=== PATIENT | male | born 1945 | race African-American/Black ===

== ENCOUNTER → 2017-01-25 | Outpatient (CLI) | payer MEDICARE, OTHER ==
[~2017-01-25] MED LIST: AMIO200T PO; AMIO200T42 PO; APIX5TAB PO; ASPI-496 PO; ASPI325T4 PO; CARV6.2512 PO; CARV6.252 PO; CEPH-368 PO; FERR325T20 PO; FERR325T63 PO; FURO-93 PO; LOSA25TA5 PO; MULT1TAB13 PO; POLY17PO5 PO; POLY510P31 PO; RAMI2.5C PO; SIMV20TA PO; SIMV20TA3 PO; SPIR25TA PO; TIOT18CA INH
== END | disposition home or self-care (01) ==
LOC: CFH 15:55
PROVIDERS: ATTEND Genetic Counselor, MS
DX: E78.5 Hyperlipidemia, unspecified (principal)
CPT/HCPCS: 71020

== ENCOUNTER → 2017-11-29 | Outpatient (CLI) | payer MEDICARE, OTHER ==
[~2017-11-29] MED LIST changes: +ASPI325T17 PO; -ASPI325T4 PO; +FERR325T18 PO; -FERR325T20 PO
== END | disposition home or self-care (01) ==
LOC: CFH 14:47
PROVIDERS: ATTEND Internal Medicine Cardiovascular Disease
DX: I10 Essential (primary) hypertension (principal)
CPT/HCPCS: 93306

== ENCOUNTER → 2018-01-24 | Outpatient (CLI) | payer MEDICARE, OTHER | END | disposition home or self-care (01) | LOC: LAB 17:20 | PROVIDERS: ATTEND Family Medicine | DX: M79.673 Pain in unspecified foot (principal) | CPT/HCPCS: 36415; 84550 ==

== ENCOUNTER → 2019-12-14 | Outpatient (CLI) | payer MEDICARE, OTHER ==
[~2019-12-14] MED LIST changes: +LOSA25TA25 PO; -LOSA25TA5 PO; -RAMI2.5C PO; +RAMI2.5C2 PO; +SIMV20TA19 PO; -SIMV20TA3 PO
== END | disposition home or self-care (01) ==
LOC: CVU 10:45
PROVIDERS: ATTEND Nurse Practitioner Family
DX: I08.0 Rheumatic disorders of both mitral and aortic valves (principal); I42.9 Cardiomyopathy, unspecified; I25.2 Old myocardial infarction
CPT/HCPCS: 93306

== ENCOUNTER 2020-01-25 06:56 | Inpatient (IN) | payer MEDICARE, OTHER ==
[~2020-01-25] VITALS: Ht 185.4 cm; Wt 118.0 kg
[2020-01-25] MEDS ORDERED: SODIUM CHLORIDE 0.9% 1,000 ML IV SCH (07:09)
[2020-01-25 07:25] VITALS: BP 130/63
[2020-01-25 08:03] LABS: BASOPHILS # (AUTO) 0.08 x10^3/uL (0-0.1); BASOPHILS % (AUTO) 1 % (0-1); EOSINOPHILS # (AUTO) 0.16 x10^3/uL (0-0.4); EOSINOPHILS % (AUTO) 2 % (1-7); LYMPHOCYTES # (AUTO) 2.48 x10^3/uL (1-3.4); LYMPHOCYTES % (AUTO) 32 % (22-44); MD NO; MEAN CORPUSCULAR HEMOGLOBIN 29.6 pg (27.5-34.5); MEAN CORPUSCULAR HGB CONC 32.8 g/dL (33.2-36.2); MEAN CORPUSCULAR VOLUME 90.4 fL (81-97); MEAN PLATELET VOLUME 7.4 fL (7.4-10.4); MONOCYTES # (AUTO) 0.53 x10^3/uL (0.2-0.8); MONOCYTES % (AUTO) 7 % (2-9); NEUTROPHILS # (AUTO) 4.58 x10^3/uL (1.8-6.8); NEUTROPHILS % (AUTO) 59 % (42-75); PLATELET COUNT 277 x10^3/uL (130-400); RED BLOOD COUNT 4.44 x10^6/uL (4.38-5.82); RED CELL DISTRIBUTION WIDTH 18.9 % (9.4-14.8)
[2020-01-25] MEDS ORDERED: CEFAZOLIN PMX 1GM/50ML 50 ML ONE (08:05)
[2020-01-25] MEDS ORDERED: CEFAZOLIN 1,000 MG ONE ×2 (08:05→14:24)
[2020-01-25] MEDS ORDERED: LIDOCAINE 1%, 20ML ONE (08:05)
[2020-01-25 08:07] LABS: INTERNATIONAL NORMALIZED RATIO 1.02 (0.93-1.1); PROTHROMBIN TIME 10.8 Seconds (9.6-11.5)
[2020-01-25 08:10] LABS: ALANINE AMINOTRANSFERASE 16 U/L (12-78); ALBUMIN 3.4 g/dL (3.4-5.0); ANION GAP 7 mmol/L (5-15); CALCIUM 8.6 mg/dL (8.5-10.1); CHLORIDE 110 mmol/L (98-107); CREATININE 1.06 mg/dL (0.7-1.3)
[2020-01-25 08:15] LABS: ALKALINE PHOSPHATASE 98 U/L (45-117); BILIRUBIN,TOTAL 0.4 mg/dL (0.2-1.0); TOTAL PROTEIN 8.3 g/dL (6.4-8.2)
[2020-01-25] MEDS ORDERED: HOLD MEDICATION MC PRN (10:00)
[2020-01-25] MEDS ORDERED: ACETAMINOPHEN 325 MG TABLET PO PRN (10:00)
[2020-01-25] MEDS ORDERED: ONDANSETRON 2MG/ML, 2ML IV PRN (10:30)
[2020-01-25] MEDS ORDERED: OXYcodone 5 MG/5 ML ORAL.SOL UDC PO PRN (10:30)
[2020-01-25] MEDS ORDERED: PROMETHAZINE 25 MG/ML, 1ML IV PRN (10:30)
[2020-01-25] MEDS ORDERED: MIDAZOLAM 1 MG/ML, 2ML IV PRN (10:30)
[2020-01-25] MEDS ORDERED: ONDANSETRON ODT 8 MG PO PRN (10:30)
[2020-01-25] MEDS ORDERED: FENTANYL PF 100 MCG/2ML IV PRN (10:30)
[2020-01-25] MEDS ORDERED: EPHEDRINE 50 MG/ML, 1ML IM PRN (10:30)
[2020-01-25] MEDS ORDERED: MORPHINE SULFATE 4 MG/ML, 1ML IVPush PRN (10:30)
[2020-01-25] MEDS ORDERED: EPHEDRINE 50 MG/ML, 1ML IVPush PRN (10:30)
[2020-01-25] MEDS: AMIODARONE 200 MG TABLET PO SCH ×3 (12:03→21:16)
[2020-01-25 14:00] VITALS: BP 126/88
[2020-01-25] MEDS ORDERED: ONDANSETRON 2MG/ML, 2ML ONE (14:24)
[2020-01-25] MEDS ORDERED: FENTANYL PF 250 MCG/5ML ONE (14:24)
[2020-01-25] MEDS ORDERED: PROPOFOL 10 MG/ML, 50ML ONE (14:24)
[2020-01-25] MEDS ORDERED: PROPOFOL 10 MG/ML, 20ML ONE (14:24)
[2020-01-25] MEDS: CEFAZOLIN PMX 1GM/50ML 50 ML IVPB SCH (16:34)
[2020-01-25 19:22] VITALS: BP 127/76
[2020-01-25] MEDS: SIMVASTATIN 20 MG TABLET PO SCH (21:16)
[2020-01-25] MEDS: SODIUM CHLORIDE FLUSH 10ML SYR IVF SCH (21:17)
[2020-01-25] MEDS: CARVEDILOL 6.25 MG TABLET PO SCH (21:17)
[2020-01-25] MEDS: FUROSEMIDE 20 MG TABLET PO SCH (21:17)
[2020-01-25] MEDS ORDERED: TEMAZEPAM 15 MG CAPSULE PO ONE (22:30)
[2020-01-26 01:21] VITALS: BP 118/73
[2020-01-26] MEDS: CEFAZOLIN PMX 1GM/50ML 50 ML IVPB SCH ×2 (01:34→21:04)
[2020-01-26] MEDS ORDERED: TEMAZEPAM 15 MG CAPSULE PO ONE ×2 (02:30→21:00)
[2020-01-26 08:20] VITALS: BP 122/72
[2020-01-26] MEDS: LOSARTAN 25MG TABLET PO SCH (09:26)
[2020-01-26] MEDS: CARVEDILOL 6.25 MG TABLET PO SCH ×2 (09:26→21:04)
[2020-01-26] MEDS: AMIODARONE 200 MG TABLET PO SCH ×3 (09:26→21:03)
[2020-01-26] MEDS: SPIRONOLACTONE 25 MG TABLET PO SCH (09:26)
[2020-01-26] MEDS: FUROSEMIDE 20 MG TABLET PO SCH ×2 (09:28→21:03)
[2020-01-26] MEDS: SODIUM CHLORIDE FLUSH 10ML SYR IVF SCH ×3 (09:28→21:03)
[2020-01-26] MEDS ORDERED: ONDANSETRON 2MG/ML, 2ML IVPush ONE (09:30)
[2020-01-26] MEDS ORDERED: SODIUM CHLORIDE 0.9% 1,000 ML IV SCH (12:04)
[2020-01-26] MEDS ORDERED: CEFAZOLIN PMX 1GM/50ML 50 ML IVPB ONE (12:30)
[2020-01-26 14:00] VITALS: BP 121/66
[2020-01-26] MEDS ORDERED: HOLD MEDICATION MC PRN (14:00)
[2020-01-26 19:39] VITALS: BP 106/64
[2020-01-26] MEDS: SIMVASTATIN 20 MG TABLET PO SCH (21:04)
[2020-01-27 01:10] VITALS: BP 117/75
[2020-01-27] MEDS: CEFAZOLIN PMX 1GM/50ML 50 ML IVPB SCH (05:15)
[2020-01-27 06:25] VITALS: BP 123/67
[2020-01-27] MEDS ORDERED: ACET325T26 PO (08:46)
[2020-01-27] MEDS ORDERED: AMIO200T42 PO (08:46)
[2020-01-27] MEDS: FUROSEMIDE 20 MG TABLET PO SCH (08:54)
[2020-01-27] MEDS: LOSARTAN 25MG TABLET PO SCH (08:54)
[2020-01-27] MEDS: CARVEDILOL 6.25 MG TABLET PO SCH (08:54)
[2020-01-27] MEDS: AMIODARONE 200 MG TABLET PO SCH (08:54)
[2020-01-27] MEDS: SPIRONOLACTONE 25 MG TABLET PO SCH (08:54)
[2020-01-27] MEDS: SODIUM CHLORIDE FLUSH 10ML SYR IVF SCH ×2 (08:55)
== END 2020-01-27 14:00 | disposition home or self-care (01) | DRG 242 ==
LOC: OUT 06:56 → EDSTATUS 08:00 → ORIP 09:37 → 5SO 11:41
PROVIDERS: ADMIT Internal Medicine Cardiovascular Disease; ATTEND Internal Medicine Cardiovascular Disease
PROC: 0JH607Z Insertion of Cardiac Resynchronization Pacemaker Pulse Generator into Chest Subcutaneous Tissue and Fascia, Open Approach (ICD-10-PCS; 2020-01-25)
PROC: 02HK3JZ Insertion of Pacemaker Lead into Right Ventricle, Percutaneous Approach (ICD-10-PCS; 2020-01-25)
PROC: 02H63JZ Insertion of Pacemaker Lead into Right Atrium, Percutaneous Approach (ICD-10-PCS; 2020-01-25)
PROC: 02WA3MZ Revision of Cardiac Lead in Heart, Percutaneous Approach (ICD-10-PCS; principal; 2020-01-25 08:00)
DX: I44.7 Left bundle-branch block, unspecified (principal); I50.43 Acute on chronic combined systolic (congestive) and diastolic (congestive) heart failure; I42.8 Other cardiomyopathies; T82.120A Displacement of cardiac electrode, initial encounter; I11.0 Hypertensive heart disease with heart failure; I48.0 Paroxysmal atrial fibrillation; Y83.8 Other surgical procedures as the cause of abnormal reaction of the patient, or of later complication, without mention of misadventure at the time of the procedure; Y92.89 Other specified places as the place of occurrence of the external cause; Z95.0 Presence of cardiac pacemaker; Z87.891 Personal history of nicotine dependence
CPT/HCPCS: 33208; 33215; 33225; 36415; 71045; 71046; 80053; 83880; 85025; 85610; 99156; 99157; C1769; C1779; C1887; C1892; C2621; G0378; J0690; J2250; J2405; J2704; J3010; C1900; Q9967

== ENCOUNTER 2020-01-28 08:42 | Inpatient (IN) | payer MEDICARE, OTHER ==
[~2020-01-28] VITALS: Ht 210.8 cm; Wt 109.9 kg
[~2020-01-28 08:42] MED LIST changes: +ACET325T26 PO
--- NOTE | 2020-01-28 08:48 | NUR ---
PATIENT ARRIVES FROM HOME WITH SAMUELSA FOR PAIN AND SWELLING TO HIS LEFT HAND. HE HAD A PACEMAKER PLACED HERE YESTERDAY, AND AN IV IN THAT HAND. THE BACK OF HIS HAND IS SWOLLEN. NO CHEST PAIN. DRESSING TO PACEMAKER IS [employer] TEGADERM WITH GAUZE
--- NOTE | 2020-01-28 09:05 | NUR ---
REPORT FROM OMKAR WILLAMS. PT CARE RESPONSIBLITIES ASSUMED.
[2020-01-28] MEDS ORDERED: CEFAZOLIN PMX 1GM/50ML 50 ML IV ONE (09:45)
[2020-01-28] MEDS ORDERED: CEFAZOLIN PMX 1GM/50ML 50 ML ONE (09:55)
[2020-01-28] MEDS ORDERED: ONDANSETRON 2MG/ML, 2ML ONE (09:55)
[2020-01-28] MEDS ORDERED: MORPHINE SULFATE 4 MG/ML, 1ML ONE ×2 (09:55→11:50)
[2020-01-28] MEDS: MORPHINE SULFATE 4 MG/ML, 1ML IVPush PRN ×2 (09:59→11:53)
[2020-01-28] MEDS ORDERED: ONDANSETRON 2MG/ML, 2ML IVPush ONE (10:00)
[2020-01-28] MEDS ORDERED: SODIUM CHLORIDE FLUSH 10ML SYR IVF ONE (10:00)
[2020-01-28] MEDS ORDERED: OMNIPAQUE 350 MG/ML, 100ML BOTTLE ONE (11:10)
--- NOTE | 2020-01-28 11:59 | NUR ---
REPORT CALLED. PT ASSISTED IN USE OF URINAL, AND MEDICATED PER MAR FOR PAIN. PT MADE AWARE OF IMPENDING TRANSPORT, DENIES ANY NEEDS OR CONCERNS AT THIS TIME. CALL LIGHT IN REACH.
[2020-01-28] MEDS ORDERED: hydrALAzine 20 MG/ML, 1ML IVPush PRN (13:00)
[2020-01-28] MEDS ORDERED: OXYcodone IR 5MG TABLET PO PRN (13:00)
[2020-01-28] MEDS ORDERED: BUTALB/APAP/CAFFEINE 50MG/325MG/40MG PO PRN ×2 (13:00)
[2020-01-28] MEDS ORDERED: ACETAMINOPHEN 325 MG TABLET PO PRN (13:00)
[2020-01-28] MEDS ORDERED: LACTATED RINGERS 1,000 ML IV ONE (13:00)
[2020-01-28] MEDS ORDERED: ONDANSETRON 2MG/ML, 2ML IVPush PRN (13:00)
[2020-01-28] MEDS ORDERED: KETOROLAC 30 MG/1 ML IV PRN (13:00)
[2020-01-28] MEDS ORDERED: TRAZODONE 50MG TABLET PO PRN (13:00)
[2020-01-28] MEDS ORDERED: IBUPROFEN 600 MG TABLET PO PRN (13:00)
[2020-01-28] MEDS ORDERED: LABETALOL 5MG/ML, 20ML IVPush PRN (13:00)
[2020-01-28] MEDS ORDERED: ONDANSETRON ODT 4 MG PO PRN (13:00)
[2020-01-28 13:41] VITALS: BP 141/81
[2020-01-28] MEDS: ENOXAPARIN 40 MG/0.4 ML SQ SCH (14:16)
[2020-01-28 19:53] VITALS: BP 122/67
[2020-01-28 20:03] VITALS: BP 122/67
[2020-01-28 20:45] VITALS: BP 119/72
[2020-01-28] MEDS: SIMVASTATIN 20 MG TABLET PO SCH (20:45)
[2020-01-28] MEDS: AMIODARONE 200 MG TABLET PO SCH (20:46)
[2020-01-28] MEDS: CARVEDILOL 6.25 MG TABLET PO SCH (20:46)
[2020-01-28] MEDS: FUROSEMIDE 20 MG TABLET PO SCH (20:47)
[2020-01-29] VITALS (7 sets, daily range): BP systolic 107–127; BP diastolic 72–84
[2020-01-29 05:45] LABS: BASOPHILS # (AUTO) 0.03 x10^3/uL (0-0.1); BASOPHILS % (AUTO) 0 % (0-1); EOSINOPHILS # (AUTO) 0.13 x10^3/uL (0-0.4); EOSINOPHILS % (AUTO) 1 % (1-7); LYMPHOCYTES # (AUTO) 2.09 x10^3/uL (1-3.4); LYMPHOCYTES % (AUTO) 22 % (22-44); MD NO; MEAN CORPUSCULAR HEMOGLOBIN 29.8 pg (27.5-34.5); MEAN CORPUSCULAR HGB CONC 32.8 g/dL (33.2-36.2); MEAN PLATELET VOLUME 7.8 fL (7.4-10.4); MONOCYTES # (AUTO) 0.72 x10^3/uL (0.2-0.8); MONOCYTES % (AUTO) 7 % (2-9); NEUTROPHILS # (AUTO) 6.76 x10^3/uL (1.8-6.8); NEUTROPHILS % (AUTO) 70 % (42-75); PLATELET COUNT 200 x10^3/uL (130-400); RED BLOOD COUNT 3.97 x10^6/uL (4.38-5.82); RED CELL DISTRIBUTION WIDTH 17.9 % (9.4-14.8)
[2020-01-29] MEDS: CARVEDILOL 6.25 MG TABLET PO SCH ×2 (08:10→21:38)
[2020-01-29] MEDS: AMIODARONE 200 MG TABLET PO SCH ×2 (08:10→21:37)
[2020-01-29] MEDS: SPIRONOLACTONE 25 MG TABLET PO SCH (08:10)
[2020-01-29] MEDS: LOSARTAN 25MG TABLET PO SCH (08:10)
[2020-01-29] MEDS: FUROSEMIDE 20 MG TABLET PO SCH ×2 (08:10→21:38)
[2020-01-29] MEDS: CEFAZOLIN PMX 1GM/50ML 50 ML IV SCH ×2 (09:51→17:22)
[2020-01-29] MEDS: ENOXAPARIN 40 MG/0.4 ML SQ SCH (13:43)
[2020-01-29 14:04] LABS: HCT (SEDRATE) 38.1 % (39.2-51.8)
[2020-01-29] MEDS: KETOROLAC 30 MG/1 ML IV SCH (17:15)
[2020-01-29] MEDS: SIMVASTATIN 20 MG TABLET PO SCH (21:37)
[2020-01-30] MEDS: CEFAZOLIN PMX 1GM/50ML 50 ML IV SCH ×2 (00:51→09:00)
[2020-01-30] MEDS: KETOROLAC 30 MG/1 ML IV SCH ×2 (00:51→07:55)
[2020-01-30 00:57] VITALS: BP 122/76
[2020-01-30 06:46] VITALS: BP 109/66
[2020-01-30] MEDS: CARVEDILOL 6.25 MG TABLET PO SCH (07:54)
[2020-01-30] MEDS: FUROSEMIDE 20 MG TABLET PO SCH (07:54)
[2020-01-30] MEDS: SPIRONOLACTONE 25 MG TABLET PO SCH (07:54)
[2020-01-30] MEDS: AMIODARONE 200 MG TABLET PO SCH (07:54)
[2020-01-30] MEDS: LOSARTAN 25MG TABLET PO SCH (07:54)
[2020-01-30] MEDS ORDERED: CEPH-368 PO (10:09)
[2020-01-30] MEDS ORDERED: IBUP-1222 PO (10:09)
[2020-01-30] MEDS: ENOXAPARIN 40 MG/0.4 ML SQ SCH (13:00)
[2020-01-30 14:35] VITALS: BP 128/75
== END 2020-01-30 17:03 | disposition home or self-care (01) | DRG 603 ==
LOC: ED 09:35 → OBSVTOIN 11:44 → EDIP 11:44 → INTOOBSV 11:44 → 3N 12:18
PROVIDERS: ADMIT Family Medicine; ATTEND Family Medicine
DX: L03.114 Cellulitis of left upper limb (principal); I42.8 Other cardiomyopathies; I13.0 Hypertensive heart and chronic kidney disease with heart failure and stage 1 through stage 4 chronic kidney disease, or unspecified chronic kidney disease; I48.20 Chronic atrial fibrillation, unspecified; I50.22 Chronic systolic (congestive) heart failure; E66.01 Morbid (severe) obesity due to excess calories; I44.7 Left bundle-branch block, unspecified; E78.5 Hyperlipidemia, unspecified; N18.9 Chronic kidney disease, unspecified; I25.10 Atherosclerotic heart disease of native coronary artery without angina pectoris; Z68.24 Body mass index [BMI] 24.0-24.9, adult; I25.2 Old myocardial infarction; Z72.0 Tobacco use; Z79.01 Long term (current) use of anticoagulants; Z95.0 Presence of cardiac pacemaker
CPT/HCPCS: 36415; 85025; 85651; 86140; 93005; 99285; G0378; J0690; J1650; J1885; J2405; Q9967; J2270; J7120

== ENCOUNTER → 2020-05-01 | Outpatient (CLI) | payer MEDICARE, OTHER ==
[~2020-05-01] MED LIST changes: +IBUP-1222 PO
== END | disposition home or self-care (01) ==
LOC: CFH 16:21
PROVIDERS: ATTEND Nurse Practitioner Family
DX: I08.8 Other rheumatic multiple valve diseases (principal); I42.9 Cardiomyopathy, unspecified; I25.10 Atherosclerotic heart disease of native coronary artery without angina pectoris; I25.2 Old myocardial infarction
CPT/HCPCS: 93306

== ENCOUNTER 2020-08-05 17:19 | Emergency (ER) | payer MEDICARE, OTHER ==
[~2020-08-05] VITALS: Ht 185.4 cm; Wt 106.0 kg
[2020-08-05] MEDS ORDERED: SODIUM CHLORIDE FLUSH 10ML SYR IVF ONE (18:00)
--- NOTE | 2020-08-05 18:06 | NUR ---
PT C/O COUGH AND SOB X2 WEEKS. SPEAKS IN FULL SENTENCES IN ED ROOM. NO WOB NOTED. PT PLEASANT WITH STAFF.
--- NOTE | 2020-08-05 18:10 | NUR ---
PT COVID SWABBED AT . DENIES PAIN AT THIS TIME. PLACED ON [employer] ENGINEERING TECHNICIANS, BP AND SPO2.
[2020-08-05 18:39] LABS: BASOPHILS % (AUTO) 1 % (0-1); EOSINOPHILS % (AUTO) 1 % (1-7); LYMPHOCYTES % (AUTO) 28 % (22-44); MEAN CORPUSCULAR HEMOGLOBIN 19.4 pg (27.5-34.5); MEAN PLATELET VOLUME 6.6 fL (7.4-10.4); MONOCYTES % (AUTO) 8 % (2-9); NEUTROPHILS % (AUTO) 62 % (42-75); PLATELET COUNT 303 x10^3/uL (130-400); RED BLOOD COUNT 4.23 x10^6/uL (4.38-5.82); RED CELL DISTRIBUTION WIDTH 20.3 % (9.4-14.8)
[2020-08-05 18:47] LABS: ALANINE AMINOTRANSFERASE 43 U/L (12-78); ALBUMIN 3.3 g/dL (3.4-5.0); ANION GAP 6 mmol/L (5-15); CALCIUM 9.3 mg/dL (8.5-10.1); CHLORIDE 108 mmol/L (98-107); CREATININE 1.76 mg/dL (0.7-1.3)
[2020-08-05 18:51] LABS: ALKALINE PHOSPHATASE 117 U/L (45-117); BILIRUBIN,TOTAL 0.5 mg/dL (0.2-1.0); TOTAL PROTEIN 8.5 g/dL (6.4-8.2); TROPONIN I < 0.015 ng/mL (0.000-0.045)
[2020-08-05 18:56] LABS: MEAN CORPUSCULAR HGB CONC 29.4 g/dL (33.2-36.2)
[2020-08-05 18:57] LABS: MD MORPH REVIEW ONLY
--- NOTE | 2020-08-05 19:04 | NUR ---
REPORT TO OMKAR SANCHES. PT RECLINED IN BED WATCHING TELEVISION. NAD NOTED AT THIS TIME.
[2020-08-05] MEDS ORDERED: SODIUM CHLORIDE 0.9% 1,000ML IVBOLUS ONE (19:30)
[2020-08-05 20:14] LABS: HYPOCHROMIA 2+; MICROCYTOSIS 2+; OVALOCYTES 1+; POLYCHROMASIA 1+; TARGET CELLS 1+
[2020-08-05 20:15] LABS: <PLATELET ESTIMATE> ADEQUATE; <PLT MORPHOLOGY> NORMAL PLT MORPH
[2020-08-05] MEDS ORDERED: OMNIPAQUE 350 MG/ML, 75ML BOTTLE ONE (20:20)
[2020-08-05 21:40] VITALS: BP 118/59
== END 2020-08-05 22:10 | disposition home or self-care (01) ==
LOC: ED 21:35
DX: R06.00 Dyspnea, unspecified (principal); D63.8 Anemia in other chronic diseases classified elsewhere; R79.89 Other specified abnormal findings of blood chemistry; R53.1 Weakness; I48.91 Unspecified atrial fibrillation; I25.2 Old myocardial infarction; I50.9 Heart failure, unspecified
CPT/HCPCS: 36415; 71045; 71275; 80053; 84484; 85025; 85379; 93005; 99285; Q9967

== ENCOUNTER 2020-08-12 21:58 | Observation (INO) | payer MEDICARE, OTHER ==
[~2020-08-12] VITALS: Ht 185.4 cm; Wt 106.4 kg
--- NOTE | 2020-08-12 22:11 | NUR ---
PT BIB EMS FOR HIGH HR. PT SAYS HE WAS AT HIS HOUSE RELAXING WHEN HE FELT HIS HEART START RACING. HE BECAME SOB, NAUSEA, AND SWEATY. HE CALLED [facility], THE COMPANY OF HIS PACEMAKER, AND THEY TOLD HIM HIS HR WAS OVER 200 AND HE SHOULD GO TO THE ER. PT ARRIVED CLAIMING 0/10 CP. DENIES ANY OTHER SYMPTOMS. EKG COMPLETE. PACEMAKER INTEROGATED. PT RESTING IN [facility].
--- NOTE | 2020-08-12 22:26 | NUR ---
late entry, float rn: interogatted st malaika pacer.
--- NOTE | 2020-08-12 22:52 | NUR ---
PT RESTING IN [facility]. NAD. VSS. PROVIDED WITH URINAL
[2020-08-12 23:21] LABS: BASOPHILS % (AUTO) 1 % (0-1); EOSINOPHILS % (AUTO) 2 % (1-7); LYMPHOCYTES % (AUTO) 33 % (22-44); MEAN CORPUSCULAR HEMOGLOBIN 19.2 pg (27.5-34.5); MONOCYTES % (AUTO) 8 % (2-9); NEUTROPHILS % (AUTO) 56 % (42-75); PLATELET COUNT 324 x10^3/uL (130-400); RED CELL DISTRIBUTION WIDTH 20.5 % (9.4-14.8)
[2020-08-12 23:28] LABS: ALBUMIN 3.4 g/dL (3.4-5.0); ANION GAP 5 mmol/L (5-15); CALCIUM 9.2 mg/dL (8.5-10.1); CHLORIDE 108 mmol/L (98-107); CREATININE 1.39 mg/dL (0.7-1.3)
[2020-08-12 23:32] LABS: TROPONIN I 0.016 ng/mL (0.000-0.045)
[2020-08-12 23:45] LABS: MEAN CORPUSCULAR HGB CONC 29.3 g/dL (33.2-36.2)
[2020-08-12 23:46] LABS: MD MORPH REVIEW ONLY
[2020-08-13 00:17] LABS: ANISOCYTOSIS 1+; HYPOCHROMIA 2+; MICROCYTOSIS 2+
[2020-08-13 00:18] LABS: <PLATELET ESTIMATE> ADEQUATE; BASOPHILLIC STIPPLING 1+; OVALOCYTES 1+; POLYCHROMASIA 1+; TARGET CELLS 1+
[2020-08-13 00:19] LABS: <PLT MORPHOLOGY> NORMAL PLT MORPH
--- NOTE | 2020-08-13 00:59 | NUR ---
PT RESTING INGURNEY. TBADM
[2020-08-13] MEDS ORDERED: DOCUSATE 100 MG CAPSULE PO PRN (01:30)
[2020-08-13 01:45] VITALS: BP 125/77
[2020-08-13 02:04] LABS: % IRON SATURATION 3 % (20-55); IRON LEVEL 13 mcg/dL (65-175); TOTAL IRON BINDING CAPACITY 475 mcg/dL (250-450)
[2020-08-13 02:13] LABS: TROPONIN I < 0.015 ng/mL (0.000-0.045)
[2020-08-13 06:36] VITALS: BP 130/81
[2020-08-13 07:25] LABS: TROPONIN I 0.021 ng/mL (0.000-0.045)
[2020-08-13] MEDS: FERROUS SULFATE 325 MG TABLET PO SCH ×2 (07:48→17:10)
[2020-08-13] MEDS: FUROSEMIDE 20 MG TABLET PO SCH ×2 (07:48→21:23)
[2020-08-13] MEDS: AMIODARONE 200 MG TABLET PO SCH ×2 (07:48→21:23)
[2020-08-13] MEDS: SPIRONOLACTONE 25 MG TABLET PO SCH (07:49)
[2020-08-13] MEDS: LOSARTAN 25MG TABLET PO SCH (07:49)
[2020-08-13] MEDS ORDERED: CARVEDILOL 6.25 MG TABLET PO SCH (09:00)
[2020-08-13 12:15] VITALS: BP 120/74
[2020-08-13 18:56] LABS: OCCULT BLOOD POSITIVE (NEGATIVE)
[2020-08-13 21:00] VITALS: BP 110/64
[2020-08-13] MEDS ORDERED: SIMVASTATIN 20 MG TABLET PO SCH (21:00)
[2020-08-13] MEDS: CARVEDILOL 12.5 MG TABLET PO SCH (21:23)
[2020-08-14 00:07] VITALS: BP 119/67
[2020-08-14] MEDS: AMIODARONE 200 MG TABLET PO SCH (08:15)
[2020-08-14] MEDS: SPIRONOLACTONE 25 MG TABLET PO SCH (08:16)
[2020-08-14] MEDS: FERROUS SULFATE 325 MG TABLET PO SCH ×2 (08:16→16:33)
[2020-08-14] MEDS: FUROSEMIDE 20 MG TABLET PO SCH (08:16)
[2020-08-14] MEDS: CARVEDILOL 12.5 MG TABLET PO SCH (08:16)
[2020-08-14] MEDS: LOSARTAN 25MG TABLET PO SCH (08:17)
[2020-08-14 08:45] VITALS: BP 116/66
[2020-08-14 11:48] LABS: BASOPHILS % (AUTO) 3 % (0-1); EOSINOPHILS % (AUTO) 4 % (1-7); LYMPHOCYTES % (AUTO) 24 % (22-44); MEAN CORPUSCULAR HEMOGLOBIN 19.2 pg (27.5-34.5); MEAN PLATELET VOLUME 6.2 fL (7.4-10.4); MONOCYTES % (AUTO) 7 % (2-9); NEUTROPHILS % (AUTO) 63 % (42-75); PLATELET COUNT 313 x10^3/uL (130-400); RED BLOOD COUNT 3.99 x10^6/uL (4.38-5.82); RED CELL DISTRIBUTION WIDTH 20.6 % (9.4-14.8)
[2020-08-14 12:01] LABS: MEAN CORPUSCULAR HGB CONC 29.3 g/dL (33.2-36.2)
[2020-08-14 12:23] VITALS: BP 106/64
[2020-08-14 12:32] LABS: MD SCAN
[2020-08-14] MEDS ORDERED: CARV6.252 PO (15:56)
[2020-08-14] MEDS ORDERED: FERR-51 PO (15:56)
[2020-08-14] MEDS ORDERED: OMEPRAZOLE 20 MG CAPSULE.DR PO SCH (16:00)
== END 2020-08-14 18:17 | disposition home or self-care (01) ==
LOC: ED 23:49 → 5SO 08-13 01:32 → INTOOBSV 08-13 01:32
PROVIDERS: ADMIT Family Medicine; ATTEND Internal Medicine
DX: R00.2 Palpitations (principal); I48.91 Unspecified atrial fibrillation; I11.0 Hypertensive heart disease with heart failure; I50.9 Heart failure, unspecified; I25.5 Ischemic cardiomyopathy; I44.7 Left bundle-branch block, unspecified; N28.9 Disorder of kidney and ureter, unspecified; D50.9 Iron deficiency anemia, unspecified; I25.2 Old myocardial infarction; R94.31 Abnormal electrocardiogram [ECG] [EKG]; Z95.0 Presence of cardiac pacemaker; Z79.899 Other long term (current) drug therapy
CPT/HCPCS: 36415; 71045; 80048; 82040; 82272; 83540; 83550; 83735; 84443; 84484; 85025; 93005; 99285; G0378

== ENCOUNTER 2020-12-18 21:30 | Emergency (ER) | payer MEDICARE, OTHER ==
[~2020-12-18] VITALS: Ht 185.4 cm; Wt 103.0 kg
[~2020-12-18 21:30] MED LIST changes: +FERR-51 PO; +OFLO5DRO4 EACHEYE; -RAMI2.5C2 PO; +RAMI2.5C49 PO
[2020-12-18 22:33] LABS: BASOPHILS % (AUTO) 1 % (0-1); EOSINOPHILS % (AUTO) 2 % (1-7); LYMPHOCYTES % (AUTO) 34 % (22-44); MEAN CORPUSCULAR HEMOGLOBIN 33.1 pg (27.5-34.5); MEAN CORPUSCULAR HGB CONC 33.6 g/dL (33.2-36.2); MEAN PLATELET VOLUME 6.8 fL (7.4-10.4); MONOCYTES % (AUTO) 10 % (2-9); NEUTROPHILS % (AUTO) 54 % (42-75); PLATELET COUNT 231 x10^3/uL (130-400); RED BLOOD COUNT 4.19 x10^6/uL (4.38-5.82); RED CELL DISTRIBUTION WIDTH 14.9 % (9.4-14.8)
[2020-12-18 22:36] LABS: MD NO
[2020-12-18 22:43] LABS: ALANINE AMINOTRANSFERASE 48 U/L (12-78); ALBUMIN 3.3 g/dL (3.4-5.0); ANION GAP 6 mmol/L (5-15); CALCIUM 8.6 mg/dL (8.5-10.1); CHLORIDE 108 mmol/L (98-107); CREATININE 1.13 mg/dL (0.7-1.3)
[2020-12-18 22:48] LABS: ALKALINE PHOSPHATASE 114 U/L (45-117); BILIRUBIN,TOTAL 0.2 mg/dL (0.2-1.0); TOTAL PROTEIN 8.1 g/dL (6.4-8.2); TROPONIN I < 0.015 ng/mL (0.000-0.045)
--- NOTE | 2020-12-18 23:22 | NUR ---
pt in bed with no signs or symptoms of acute distress noted respirations even and unlabored, on hydrography teacher with bed rails up bilaterally and call light within reach. pt denies pain or discomfort at this time.
--- NOTE | 2020-12-18 23:47 | NUR ---
pt in bed with no signs or symptoms of acute dsitress noted respirations even and unlabored, staff at bedside to interrogate pacer.
[2020-12-19 02:06] VITALS: BP 145/88
== END 2020-12-19 02:07 | disposition home or self-care (01) ==
LOC: ED 12-19 01:36
DX: R53.1 Weakness (principal); I11.0 Hypertensive heart disease with heart failure; I50.9 Heart failure, unspecified; R07.89 Other chest pain; R94.31 Abnormal electrocardiogram [ECG] [EKG]; I48.91 Unspecified atrial fibrillation; Z95.0 Presence of cardiac pacemaker; Z91.14 Patient's other noncompliance with medication regimen
CPT/HCPCS: 36415; 71045; 80053; 82962; 84484; 85025; 93005; 99285

== ENCOUNTER 2021-02-27 12:52 | Emergency (ER) | payer MEDICARE, OTHER ==
[~2021-02-27] VITALS: Ht 185.4 cm; Wt 107.0 kg
--- NOTE | 2021-02-27 13:15 | NUR ---
pt nneka, pt has pacemaker/aicd, was defibrillated last night at approx 2100 while washing dishes at home. pt called this am by pacemaker company to inform him that incident last night was vtach pt denies cp/sob this am, currently paced on monitoring analyst, rate 60s. pt a&o, resps even & unlabored, nadn. all monitors in place, warm blanket provided, call light in reach. MD Pompa at bedside for eval.
--- NOTE | 2021-02-27 13:15 | NUR ---
PRECEPTOR RN NOTE: MD DÍAZ AT BEDSIDE.
[2021-02-27 14:09] LABS: BASOPHILS % (AUTO) 1 % (0-1); EOSINOPHILS % (AUTO) 2 % (1-7); LYMPHOCYTES % (AUTO) 30 % (22-44); MEAN PLATELET VOLUME 6.9 fL (7.4-10.4); MONOCYTES % (AUTO) 11 % (2-9); NEUTROPHILS % (AUTO) 56 % (42-75); PLATELET COUNT 254 x10^3/uL (130-400); RED BLOOD COUNT 3.55 x10^6/uL (4.38-5.82)
[2021-02-27 14:13] LABS: ALBUMIN 3.1 g/dL (3.4-5.0); ANION GAP 6 mmol/L (5-15); CALCIUM 8.7 mg/dL (8.5-10.1); CHLORIDE 108 mmol/L (98-107)
[2021-02-27 14:14] LABS: CREATININE 1.31 mg/dL (0.7-1.3)
[2021-02-27 14:16] LABS: MD NO
[2021-02-27] MEDS ORDERED: AMIODARONE 200 MG TABLET PO ONE (14:30)
[2021-02-27] MEDS ORDERED: AMIODARONE 200 MG TABLET ONE (14:50)
[2021-02-27 14:53] VITALS: BP 106/89
--- NOTE | 2021-02-27 14:54 | NUR ---
PT UPDATED ON POC. A&O, RESPS EVEN/UNLABORED, ALL MONITORS IN PLACE. PT MEDICATED WITH AMIO PER EMAR, TOLERATED WELL. NADN. CALL LIGHT IN REACH.
== END 2021-02-27 15:29 | disposition home or self-care (01) ==
LOC: EDBD → MERGE 12:52 → ED 15:17
DX: I47.2 Ventricular tachycardia (principal); I10 Essential (primary) hypertension; I48.91 Unspecified atrial fibrillation
CPT/HCPCS: 36415; 80048; 82040; 83735; 85025; 93005; 99284

== ENCOUNTER 2021-03-08 14:16 | Outpatient (CLI) | payer MEDICARE, OTHER ==
[2021-03-08 14:58] LABS: BASOPHILS % (AUTO) 1 % (0-1); EOSINOPHILS % (AUTO) 1 % (1-7); LYMPHOCYTES % (AUTO) 22 % (22-44); MEAN CORPUSCULAR HEMOGLOBIN 32.3 pg (27.5-34.5); MEAN CORPUSCULAR HGB CONC 33.3 g/dL (33.2-36.2); MEAN PLATELET VOLUME 6.7 fL (7.4-10.4); MONOCYTES % (AUTO) 9 % (2-9); NEUTROPHILS % (AUTO) 68 % (42-75); PLATELET COUNT 287 x10^3/uL (130-400); RED CELL DISTRIBUTION WIDTH 15.5 % (9.4-14.8)
[2021-03-08 15:09] LABS: ALANINE AMINOTRANSFERASE 46 U/L (12-78); ALBUMIN 3.4 g/dL (3.4-5.0); ANION GAP 3 mmol/L (5-15); CALCIUM 8.5 mg/dL (8.5-10.1); CHLORIDE 109 mmol/L (98-107); CREATININE 1.26 mg/dL (0.7-1.3)
[2021-03-08 15:17] LABS: ALKALINE PHOSPHATASE 119 U/L (45-117); BILIRUBIN,TOTAL 0.3 mg/dL (0.2-1.0); T4 (THYROXINE) 11.6 mcg/dL (4.5-12.1); TOTAL PROTEIN 8.4 g/dL (6.4-8.2)
== END 2021-03-08 23:59 | disposition home or self-care (01) ==
LOC: LAB 14:16 → RAD 23:59
PROVIDERS: ATTEND Internal Medicine Cardiovascular Disease
DX: I48.91 Unspecified atrial fibrillation (principal); I47.2 Ventricular tachycardia; I48.92 Unspecified atrial flutter; I50.22 Chronic systolic (congestive) heart failure; Z95.810 Presence of automatic (implantable) cardiac defibrillator
CPT/HCPCS: 36415; 71046; 80053; 83880; 84436; 84481; 85025

== ENCOUNTER → 2021-04-24 | Outpatient (CLI) | payer MEDICARE, OTHER ==
[~2021-04-24] MED LIST changes: +REGADENOSON 0.4 MG/5 ML SYRINGE ONE
== END | disposition home or self-care (01) ==
LOC: CFH 12:17
PROVIDERS: ATTEND Internal Medicine Cardiovascular Disease
DX: I25.89 Other forms of chronic ischemic heart disease (principal); I42.9 Cardiomyopathy, unspecified; I48.92 Unspecified atrial flutter
CPT/HCPCS: 78452; 93017; A9502; J2785

== ENCOUNTER 2021-05-22 11:27 | Day surgery (SDC) | payer MEDICARE, OTHER ==
[~2021-05-22] VITALS: Ht 185.4 cm; Wt 102.7 kg
[~2021-05-22 11:27] MED LIST changes: -REGADENOSON 0.4 MG/5 ML SYRINGE ONE; +SODIUM CHLORIDE 0.9% 1,000 ML IV SCH
[2021-05-22 12:55] VITALS: BP 116/71
[2021-05-22] MEDS ORDERED: OMEP-110 PO (13:10)
[2021-05-22] MEDS ORDERED: APIX5TAB PO (13:10)
[2021-05-22] MEDS ORDERED: CARV6.2512 PO (13:10)
[2021-05-22] MEDS ORDERED: MEXI150C PO (13:10)
[2021-05-22] MEDS ORDERED: AMIO200T42 PO ×2 (13:10→13:12)
[2021-05-22 14:12] LABS: BASOPHILS % (AUTO) 1 % (0-1); EOSINOPHILS % (AUTO) 2 % (1-7); LYMPHOCYTES % (AUTO) 27 % (22-44); MEAN CORPUSCULAR HEMOGLOBIN 25.2 pg (27.5-34.5); MEAN CORPUSCULAR HGB CONC 31.7 g/dL (33.2-36.2); MEAN PLATELET VOLUME 7.2 fL (7.4-10.4); MONOCYTES % (AUTO) 9 % (2-9); NEUTROPHILS % (AUTO) 61 % (42-75); PLATELET COUNT 323 x10^3/uL (130-400); RED BLOOD COUNT 4.23 x10^6/uL (4.38-5.82); RED CELL DISTRIBUTION WIDTH 22.7 % (9.4-14.8)
[2021-05-22 14:22] LABS: ALANINE AMINOTRANSFERASE 71 U/L (12-78); ALBUMIN 3.3 g/dL (3.4-5.0); ANION GAP 3 mmol/L (5-15); CALCIUM 8.8 mg/dL (8.5-10.1); CHLORIDE 107 mmol/L (98-107); CREATININE 1.37 mg/dL (0.7-1.3)
[2021-05-22 14:32] LABS: ALKALINE PHOSPHATASE 126 U/L (45-117); BILIRUBIN,TOTAL 0.7 mg/dL (0.2-1.0); T4 (THYROXINE) 9.6 mcg/dL (4.5-12.1); TOTAL PROTEIN 8.8 g/dL (6.4-8.2)
[2021-05-22] MEDS ORDERED: FENTANYL PF 100 MCG/2ML ONE (15:38)
[2021-05-22] MEDS ORDERED: MIDAZOLAM 1 MG/ML, 2ML ONE (15:38)
[2021-05-22] MEDS ORDERED: VERAPAMIL 2.5 MG/ML, 2ML ONE (15:39)
[2021-05-22] MEDS ORDERED: LIDOCAINE-MPF 1%, 5ML ONE (15:39)
[2021-05-22] MEDS ORDERED: HEPARIN 1,000 UNITS/ML, 10ML ONE (15:39)
[2021-05-22] MEDS ORDERED: MEXILETINE 150 MG CAPSULE PO SCH (18:00)
[2021-05-22] MEDS ORDERED: OFLOXACIN OPHTH 0.3%, 5ML EACHEYE SCH (21:00)
[2021-05-22] MEDS ORDERED: APIXABAN 5 MG TABLET PO SCH (21:00)
[2021-05-22] MEDS ORDERED: SIMVASTATIN 20 MG TABLET PO SCH (21:00)
[2021-05-22] MEDS ORDERED: FUROSEMIDE 20 MG TABLET PO SCH (21:00)
[2021-05-22] MEDS ORDERED: CARVEDILOL 6.25 MG TABLET PO SCH (21:00)
[2021-05-23] MEDS ORDERED: FERROUS SULFATE 325 MG TABLET PO SCH (08:00)
[2021-05-23] MEDS ORDERED: OMEPRAZOLE 20 MG CAPSULE.DR PO SCH (09:00)
[2021-05-23] MEDS ORDERED: SPIRONOLACTONE 25 MG TABLET PO SCH (09:00)
[2021-05-23] MEDS ORDERED: AMIODARONE 200 MG TABLET PO SCH (09:00)
[2021-05-23] MEDS ORDERED: LOSARTAN 25MG TABLET PO SCH (09:00)
== END 2021-05-22 17:21 | disposition home or self-care (01) ==
LOC: CACL 11:27
PROVIDERS: ATTEND Internal Medicine Cardiovascular Disease
DX: R94.39 Abnormal result of other cardiovascular function study (principal); I25.110 Atherosclerotic heart disease of native coronary artery with unstable angina pectoris; I25.83 Coronary atherosclerosis due to lipid rich plaque; I48.91 Unspecified atrial fibrillation; I48.92 Unspecified atrial flutter; I11.0 Hypertensive heart disease with heart failure; I50.22 Chronic systolic (congestive) heart failure; I42.9 Cardiomyopathy, unspecified; I49.01 Ventricular fibrillation; I47.2 Ventricular tachycardia; E78.5 Hyperlipidemia, unspecified; Z79.01 Long term (current) use of anticoagulants; Z79.899 Other long term (current) drug therapy; Z95.810 Presence of automatic (implantable) cardiac defibrillator
CPT/HCPCS: 36415; 80053; 83880; 84436; 84443; 84481; 85025; 93458; 99156; C1769; C1894; J1644; J2250; J3010; Q9967

== ENCOUNTER 2021-06-12 00:15 | Emergency (ER) | payer MEDICARE, OTHER ==
[~2021-06-12] VITALS: Ht 185.4 cm; Wt 100.0 kg
[~2021-06-12 00:15] MED LIST changes: +MEXI150C PO; +OMEP-110 PO; -SODIUM CHLORIDE 0.9% 1,000 ML IV SCH
--- NOTE | 2021-06-12 00:22 | NUR ---
PT HECTOR FROM HOME, PT STATED THAT HE WAS JUST WALKING AROUND HIS HOUSE NORMALLY AND HAD A SUDDEN ONSET OF SOB, PT STATED THIS HAS HAPPENED TO HIM IN THE PAST BEFORE, PT ALSO PRESENTS WITH ABDOMINAL DISTENSION NOT ASSOCIATED WITH PAIN, PT HAS A PACEMAKER IN PLACE AND PT STATED THAT HE FELT LIKE HE WAS GOING TO GET SHOCKED WHEN THE SOB OCCURED, PT CURRENTLY NAD AND VSS
[2021-06-12] MEDS ORDERED: SODIUM CHLORIDE FLUSH 10ML SYR IVF ONE (00:30)
[2021-06-12 01:41] LABS: ALANINE AMINOTRANSFERASE 84 U/L (12-78); ALBUMIN 2.8 g/dL (3.4-5.0); ANION GAP 7 mmol/L (5-15); CALCIUM 8.1 mg/dL (8.5-10.1); CHLORIDE 109 mmol/L (98-107); CREATININE 1.23 mg/dL (0.7-1.3)
[2021-06-12 01:45] LABS: ALKALINE PHOSPHATASE 119 U/L (45-117); BILIRUBIN,TOTAL 0.2 mg/dL (0.2-1.0); TOTAL PROTEIN 8.2 g/dL (6.4-8.2); TROPONIN I < 0.015 ng/mL (0.000-0.045)
[2021-06-12 01:50] LABS: BASOPHILS % (AUTO) 1 % (0-1); EOSINOPHILS % (AUTO) 3 % (1-7); LYMPHOCYTES % (AUTO) 35 % (22-44); MEAN CORPUSCULAR HGB CONC 31.2 g/dL (33.2-36.2); MEAN PLATELET VOLUME 6.8 fL (7.4-10.4); MONOCYTES % (AUTO) 9 % (2-9); NEUTROPHILS % (AUTO) 53 % (42-75); PLATELET COUNT 275 x10^3/uL (130-400); RED BLOOD COUNT 4.36 x10^6/uL (4.38-5.82); RED CELL DISTRIBUTION WIDTH 22.8 % (9.4-14.8)
--- NOTE | 2021-06-12 03:06 | NUR ---
PT LAYING IN BED, A/OX4, ALL NEEDS IN REACH, CALL LIGHT IN REACH, NAD AT THIS TIME, PT GIVEN LUCY CRACKERS AND MILK PER PTS REQUEST
[2021-06-12] MEDS ORDERED: SODIUM CHLORIDE 0.9% 1,000ML IVBOLUS ONE (04:00)
--- NOTE | 2021-06-12 04:36 | NUR ---
HOSPITALIST SAW PT AND DID NOT FEEL IT WAS NECESSARY TO ADMIT PT BECAUSE PT WAS RECENTLY ADMITED AND RECEIVED A FULL WORK UP, THIS RN AMBULATED PT AROUND THE UNIT AND PT AMBULATED WITH A STEADY GAIT AND DID NOT COMPLAIN OF ANY DIZZINESS OR LIGHTHEADEDNESS, PT WAS NAD FOR THE ENTIRE WALK, PT NOT TO BE ADMITTED, PT LIVES IN [facility] AND HIS WILL COME PICK HIM UP IN THE MORNING, THIS RN PROVIDED PT WITH A PILLOW AND EXCHANGED GURNEY FOR A HOSPITAL BED FOR PTS COMFORT
--- NOTE | 2021-06-12 05:24 | NUR ---
PT ASLEEP IN BED, NAD, VSS
--- NOTE | 2021-06-12 06:33 | NUR ---
PT ASLEEP IN BED, VSS, ALL NEEDS IN REACH, CALL LIGHT IN REACH, NAD AT THIS TIME
--- NOTE | 2021-06-12 06:50 | NUR ---
REPORT FROM PONCHO RN, ASSUME CARE OF PT AT THIS TIME.
[2021-06-12 07:58] VITALS: BP 93/55
--- NOTE | 2021-06-12 08:18 | NUR ---
PER PT, NO DIZZINESS AND FEELING BETTER. PT PROVIDED DISCHARGE PAPERWORK AND WILL WAIT IN LOBBY FOR TO COMBINE OPERATOR.
== END 2021-06-12 08:19 | disposition home or self-care (01) ==
LOC: ED 01:12 → EDIP 02:56 → UNDOADMIN 02:56 → ED 08:13
DX: R42 Dizziness and giddiness (principal); R55 Syncope and collapse; R94.31 Abnormal electrocardiogram [ECG] [EKG]; I11.0 Hypertensive heart disease with heart failure; I50.9 Heart failure, unspecified; I48.91 Unspecified atrial fibrillation; Z95.0 Presence of cardiac pacemaker; Z98.61 Coronary angioplasty status
CPT/HCPCS: 36415; 71045; 80053; 83880; 84484; 85025; 93005; 96360; 99285; J7030